=== PATIENT | male | born 1960 | race Caucasian/White ===

== ENCOUNTER → 2019-04-26 | Outpatient (CLI) | payer BC ==
[2019-04-26 08:52] LABS: HCT 45.8 % (39.0-53.0); MCV 91.5 fL (80.0-100.0); Mean Platelet Volume 6.2; Platelet Count 281 k/uL (150-450); RDW 11.8 % (11.5-15.5); WBC 7.8 k/uL (3.8-10.6)
[2019-04-26 08:56] LABS: Appearance,Urine Clear (Clear); Bilirubin,Urine Negative (Negative); Blood,Urine Negative (Negative); Color,Urine Yellow; Glucose,Urine (UA) Negative (Negative); Ketones,Urine Negative (Negative); Leukocyte Esterase,Urine Negative (Negative); Nitrite,Urine Negative (Negative); Protein,Urine Negative (Negative); Specific Gravity,Urine 1.019 (1.001-1.035); Urobilinogen,Urine <2.0 mg/dL (<2.0)
[2019-04-26 08:57] LABS: Albumin 4.4 g/dL (3.5-5.0); Calcium 9.8 mg/dL (8.4-10.2); Potassium 4.4 mmol/L (3.5-5.1); Total Bilirubin 1.3 mg/dL (0.2-1.3); Total Protein 7.5 g/dL (6.3-8.2)
== END | disposition home or self-care (01) ==
LOC: LABPAT 07:54
PROVIDERS: ATTEND Orthopaedic Surgery
DX: Z01.812 Encounter for preprocedural laboratory examination (principal); M16.11 Unilateral primary osteoarthritis, right hip
CPT/HCPCS: 36415; 80053; 81003; 85027; 85610; 85730; 87070

== ENCOUNTER 2019-05-01 07:16 | Inpatient (IN) | payer BC ==
[2019-04-26 14:24] VITALS: BMI 29.5
[~2019-05-01 07:16] MED LIST: ACETAMINOPHEN TAB 500 MG TAB PO ONE; DEXAMETHASONE SOD PHOSPHATE 10 MG/ML 1 ML VIAL IV ONE; GABAPENTIN 300 MG CAP PO ONE; LIDOCAINE 1% 20 ML VIAL (10MG/ML) FOR IV START INTRADERMA PRN; MELOXICAM 7.5 MG TAB PO ONE; ROPIVACAINE 246.25 MG, EPINEPHrine 0.5 MG, KETOROLAC 30 MG, cloNIDine HCL/PF 80 MCG, WA... MISCELLANE ONE; TRANEXAMIC ACID 1,000 MG in SODIUM CHLORIDE 0.9% 100 ML IVPB ONE
[2019-05-01] MEDS ORDERED: HYDROmorphone 0.5 MG/0.5 ML SYRINGE IVP PRN ×2 (09:01)
[2019-05-01] MEDS ORDERED: hydrOXYzine PAMOATE 25 MG CAP PO PRN (09:01)
[2019-05-01] MEDS ORDERED: NALOXONE 0.4 MG/ML 1 ML VIAL IV PRN (09:01)
[2019-05-01] MEDS ORDERED: HYDROcodone/APAP 5-325MG 1 EACH TAB PO PRN ×2 (09:01)
[2019-05-01] MEDS ORDERED: DIAZEPAM 5 MG TAB PO PRN (09:01)
[2019-05-01] MEDS ORDERED: MAGNESIUM HYDROXIDE 2,400 MG/10 ML CUP PO PRN (09:01)
[2019-05-01] MEDS ORDERED: HYDROmorphone 1 MG/ML 1 ML SYRINGE IVP PRN (09:01)
[2019-05-01] MEDS ORDERED: ONDANSETRON 4 MG/2 ML VIAL IVP PRN (09:01)
[2019-05-01] MEDS: LACTATED RINGERS 1,000 ML IV SCH (09:02)
[2019-05-01] MEDS ORDERED: ONDANSETRON 4 MG/2 ML VIAL IVP ONE (09:02)
[2019-05-01] MEDS ORDERED: TRANEXAMIC ACID 1,000 MG/10 ML VIAL ONE (09:37)
[2019-05-01] MEDS ORDERED: MIDAZOLAM 2 MG/2 ML VIAL ONE (09:37)
[2019-05-01] MEDS ORDERED: LACTATED RINGERS 1,000 ML BAG IV ONE (09:37)
[2019-05-01] MEDS ORDERED: SUCCINYLCHOLINE CHLORIDE 100 MG/5 ML SYR IV ONE (09:37)
[2019-05-01] MEDS ORDERED: SODIUM CHLORIDE 0.9% 100 ML BAG ONE (09:37)
[2019-05-01] MEDS ORDERED: fentaNYL (PF) 50 MCG/ML 2 ML AMP ONE (09:37)
[2019-05-01] MEDS ORDERED: ePHEDrine SULFATE/0.9% NACL/PF 50 MG/5 ML SYRINGE IV ONE (09:37)
[2019-05-01] MEDS ORDERED: PROPOFOL 10 MG/ML 20 ML VIAL IV ONE (09:37)
[2019-05-01] MEDS ORDERED: LIDOCAINE 1% INJ 10MG/ML (20 ML MDV) ONE (09:37)
[2019-05-01] MEDS ORDERED: ceFAZolin 3,000 MG in SODIUM CHLORIDE 0.9% IRRIGATIO 3,000 ML IRRIGATION ONE (09:40)
[2019-05-01] MEDS ORDERED: LACTATED RINGERS 1,000 ML IV ONE (11:09)
[2019-05-01] MEDS: HYDROmorphone 0.5 MG/0.5 ML SYRINGE IVP PRN ×4 (11:25→11:45)
--- NOTE | 2019-05-01 11:27 | P.OP ---
Date of Procedure: 05/01/19 Preoperative Diagnosis: Severe osteoarthritis right hip Postoperative Diagnosis: Severe osteoarthritis right hip Procedure(s) Performed: Right total hip arthroplasty with a direct anterior approach Implants: [employer] [employer] Polarstem size 5 standard [employer] R3, 3 hole acetabular shell, 54 mm [employer] reflection 6.5 mm cancellus screw, 20 mm 2 [employer] R3, XLPE 20 acetabular liner [employer] Oxinium femoral head 36 m, +0 All components were press-fit. The articulation is Oxinium on polyethylene. Anesthesia: GETA Surgeon: José Miguel Vanessa Stratigraphy Teacher #1: Soraya Brooks Estimated Blood Loss (ml): 200 (70 mL returned with Cell Saver) Pathology: other (Femoral head) Condition: stable Disposition: PACU Indications for Procedure: After failure of conservative treatment we discussed the surgical and nonsurgical treatment options at length. Patient wishes to proceed with a total hip arthroplasty with a direct anterior approach. Complications specific to this procedure were discussed at length, including but not limited to infection, leg length discrepancy, dislocation, and nerve injury. Patient is aware of all these complications and informed consent was obtained Operative Findings: The operative findings are consistent with severe osteoarthritis of the right hip Description of Procedure: Patient was seen and evaluated in the preoperative area, consent was reviewed, and the surgical site was marked with a skin marker. Patient was then brought to the operating room and given prophylactic antibiotics intravenously. 1 g of Tranexamic acid was also given. A spinal anesthetic was administered by the anesthesia department. The spinal anesthetic did not seem to provide adequate anesthesia, so a general anesthetic was then administered. The patient was then placed on the [place] table with the bony prominences well-padded. The hip area was then prepped and draped in usual sterile fashion. A universal timeout was then performed, which confirmed the patient's name, surgical site, ALLERGIES, and procedure being performed. Next the incision site was located at 1 cm distal and 1 cm lateral to the anterior superior iliac spine. The skin and subcutaneous tissues were sharply incised. Incision was carefully dissected down to the fascia overlying the tensor fascia ingrid muscle. This fascia was then incised in line with the incision. Next, using blunt finger dissection, the tensor fascia ingrid muscle was dissected off its investing fascia. The muscle was then carefully retracted laterally with a cobra retr actor over the lateral neck of the femur. Next, the circumflex vessels were identified and cauterized using the AquaMantis device. The anterior hip capsule was then exposed. The capsule was then opened and an inverted T fashion. Cobra retractors were then placed intracapsularly. The proximal femur was then visualized. The femoral neck was then osteotomized appropriate level above the lesser trochanter. Small amount of traction was placed with the [place] table. A small wedge of bone was then removed from the remaining femoral head. Next, using a corkscrew femoral head was easily removed from the acetabulum. On gross visual inspection, the femoral head had complete loss of articular cartilage in multiple periarticular osteophytes. Attention was then turned to the acetabulum. the acetabulum was exposed and any remaining labrum was excised. Sequential reaming of the acetabulum was performed using fluoroscopic guidance. When the appropriate size was reached, a trial was then placed. The position and fit of the trial was checked with fluoroscopy. The trial was then removed. Then, using fluoroscopic guidance, the final implant was impacted at 20 of anteversion and 40 of abduction, and fully seated in the acetabulum. 2 screws were then placed in the acetabulum. Again fluoroscopy was used to check position of the screws. Next, the liner was then impacted, with a 20 elevated liner located in the anterior superior quadrant. Component locking was confirmed. Attention was then directed to the femur. With the aid of the [place] table, the femur was externally rotated to approximately 130, extended, and abducted under the opposite leg. A side hook was then placed under the proximal femur, and the side hook elevator was used to elevate the proximal femur. Retractors were then placed. A capsular release was performed, as well as a release of the conjoined tendon, which afforded excellent visualization of the proximal femur. Next, a box osteotome was used to lateralize the proximal femur. A hide stretcher hand was then used to locate the femoral canal. Sequential broaching was then performed with appropriate size which afforded excellent fixation in the proximal femur. A trial was then placed with appropriate head and neck, and the hip was gently reduced with the aid of the [place] table. Fluoroscopy was then used to check position of the components, as well as to ensure equal leg lengths. The hip was then gently dislocated and the trials were then removed. Final implants were then impacted and the hip was again reduced. Final fluoroscopic x-rays con firmed that the components were in anatomic position, as well as equal leg lengths. The hip was also taken through range of motion, and found to be stable. The hip was then copiously irrigated with antibiotic solution with pulsatile lavage. The hip was then irrigated with Irrisept solution. The soft tissues were then injected with a ropivacaine solution, which consisted of 246.25 mg of ropivacaine, 0.5 mg of epinephrine, 30 mg of Toradol, 80 g of clonidine, and 48.45 mL of sterile water, for a total of 100 mL of fluid injected. A second dose of 1 g of Tranexamic acid was also given. the fascia was then closed with 2-0 strata fix suture. The subcutaneous tissue was closed with 3-0 Vicryl. The subcuticular tissue was closed with 3-0 strata fix suture. The skin was then closed with Dermabond glue and a sterile silver dressing. The patient was then transferred to the recovery room in stable condition. The learning and development assistant SARI Couch was required due to the complexity of surgery, and the need for skilled surgical services director for positioning, draping, exposure, retraction, and closure of the wound.
[2019-05-01] MEDS ORDERED: diphenhydrAMINE 50 MG/ML 1 ML VIAL IVP ONE (11:33)
[2019-05-01] MEDS ORDERED: KETOROLAC 30 MG/ML 1 ML VIAL IVP ONE (11:34)
--- NOTE | 2019-05-01 12:00 | XR ---
EXAMINATION TYPE: XR Hip Limited RT DATE OF EXAM: 05/01/2019 COMPARISON: NONE HISTORY: Postop TECHNIQUE: One view submitted. FINDINGS: There is postsurgical change in near anatomic alignment. There is soft tissue edema and emphysema. IMPRESSION: 1. Postoperative change. Appears in near-anatomic alignment.
--- NOTE | 2019-05-01 13:43 | XR ---
Limited right hip HISTORY: Right hip arthroplasty 2 intraoperative C-arm images document the procedure.
--- NOTE | 2019-05-01 13:43 | FL ---
Fluoroscopy HISTORY: Anterior hip replacement 1.12 minutes fluoroscopy time supplied to the referring clinician. 2 intraoperative C-arm images doc ument the procedure. See dictated report from orthopedic surgery.
[2019-05-01 15:52] LABS: Glucose,Whole Blood 137 mg/dL (75-99)
[2019-05-01] MEDS: SODIUM CHLORIDE 0.9% 1,000 ML IV SCH (17:38)
[2019-05-01] MEDS ORDERED: ACETAMINOPHEN TAB 325 MG TAB PO PRN (17:48)
--- NOTE | 2019-05-01 17:54 | P.CONS ---
History of Present Illness - Reason for Consult Consult date: 05/01/19 Medical management Requesting physician: José Miguel Vanessa - Chief Complaint Right hip pain - History of Present Illness 58-year-old male with PMH of ALLERGIC rhinitis and right hip osteoarthritis presents to [facility] for elective surgery. He is status post right total hip arthroplasty with a direct anterior approach. Patient was seen and examined after his procedure. Patient reports vague right hip pain, described as pulled muscle, well controlled currently. He denies any chest pain, shortness of breath or palpitations. No nausea or vomiting. No fever or chills. Not passing gas. Has not had a bowel movement. Also had some urinary hesitancy when trying to urinate after surgery. He denies any headache, lower extremity edema, cough or palpitations. He does complain of some numbness along the lateral side of the right hip. Review of Systems Pertinent positives and negatives as discussed in HPI, a complete review of systems was performed and all other systems are negative. Past Medical History Past Medical History: No Reported History Additional Past Medical History / Comment(s): seasonal allergies History of Any Multi-Drug Resistant Organisms: None Reported Past Surgical History: No Surgical Hx Reported Additional Past Surgical History / Comment(s): mole removed,colonscopy Past Anesthesia/Blood Transfusion Reactions: No Reported Reaction, Motion Sickness Past Psychological History: Anxiety Smoking Status: Never smoker Past Alcohol Use History: None Reported Past Drug Use History: None Reported Additional Drug Use History / Comment(s): cbd oil - Past Family History Mother Family Medical History: Cancer Additional Family Medical History / Comment(s): breast cancer Father Family Medical History: Cancer Additional Family Medical History / Comment(s): bladder cancer Medications and Allergies Home Medications Medication Instructions Recorded Confirmed Type Cetirizine HCl [Zyrtec] 10 mg PO DAILY 04/26/19 04/26/19 History Fluticasone Nasal [place] [Flonase 1 spray EA NOSTRIL DAILY 04/26/19 04/26/19 History Nasal [place]] Naproxen Sodium [Aleve] 440 mg PO DAILY 04/26/19 04/26/19 History Allergies Allergy/AdvReac Type Severity Reaction Status Date / Time No Known Allergies Allergy Verified 04/26/19 14:09 Physical Exam Vitals: Vital Signs Temp Pulse Resp BP Pulse Ox 05/01/19 15:13 97.9 F 99 17 128/77 95 05/01/19 14:01 99 16 130/60 97 05/01/19 13:45 91 16 129/68 95 05/01/19 13:00 97 16 129/67 96 05/01/19 12:31 95 16 136/64 99 05/01/19 12:16 94 16 136/66 99 05/01/19 12:01 93 16 170/81 94 L 05/01/19 11:47 95 16 163/84 100 05/01/19 11:20 97.9 F 96 16 145/87 96 05/01/19 09:01 98.1 F 101 H 17 155/74 98 Intake and Output 05/01/19 05/01/19 05/01/19 06:59 14:59 22:59 Intake Total 751 Output Total 200 Balance 551 Intake: IV 751 Output: Estimated Blood Loss 200 Other: Weight 89.2 kg 89.2 kg General: [non toxic], [no distress], [appears at stated age] Derm: [warm], [dry] Head: [atraumatic], [normocephalic], [symmetric] Eyes: [EOMI], [no lid lag], [anicteric sclera] Mouth: [no lip lesion], [mucus membranes moist] Cardiovascular: [S1S2 reg], [no murmur], [positive DP pulse bilateral], Lungs: [CTA bilateral], [no rhonchi, no rales] , [no accessory muscle use] Abdominal: [soft], [ nontender to palpation], [no guarding], [no appreciable organomegaly] Ext: [no gross muscle atrophy], [no edema], [no contractures], [right hip dressing clean dry and intact] Neuro: [ CN II-XI grossly intact], [no focal neuro deficits] Psych: [Alert], [oriented], [appropriate affect] Results Labs: Abnormal Lab Results - Last 24 Hours (Table) 05/01/19 Range/Units 15:50 POC Glucose (mg/dL) 137 H (75-99) mg/dL Assessment and Plan Assessment: Assessment and Plan ALLERGIC rhinitis Right hip osteoarthritis Takes Flonase and Zyrtec at home. Plans: Resume if necessary. Status post right hip arthroplasty POD 0. Plans: Management as per orthopedic surgery. DVT prophylaxis: [SCD] Discussed with: [Patient and ] Anticipated discharge: [Tomorrow] Anticipated discharge place: [Home] A total of [35] minutes was spent on the care of this complex patient more than 50% of the time was spent in counseling and care coordination. Patient names his Azeb decision-maker in the case that he can't make decisions for himself. Patient reiterates wanting to remain full code at this time. Thank you for this consultation. Please call with any additional questions or concerns.
[2019-05-01] MEDS ORDERED: SENNOSIDES-DOCUSATE SODIUM 1 EACH TAB PO SCH (21:00)
[2019-05-01] MEDS: ASPIRIN 325 MG TAB PO SCH (22:13)
[2019-05-02] MEDS: SODIUM CHLORIDE 0.9% 1,000 ML IV SCH ×2 (00:08→12:56)
[2019-05-02 01:54] VITALS: TEMP 97.6
[2019-05-02] MEDS: ASPIRIN 325 MG TAB PO SCH (07:07)
[2019-05-02] MEDS: LACTATED RINGERS 1,000 ML IV SCH (07:10)
[2019-05-02 07:26] LABS: Basophils % (A) 0 %; Eosinophils # (A) 0.1 k/uL (0-0.7); Eosinophils % (A) 1 %; HCT 35.8 % (39.0-53.0); Lymphocytes # (A) 2.4 k/uL (1.0-4.8); Lymphocytes % (A) 22 %; MCH 31.7 pg (25.0-35.0); MCHC 34.5 g/dL (31.0-37.0); MCV 91.7 fL (80.0-100.0); Mean Platelet Volume 7.5; Monocytes # (A) 0.8 k/uL (0-1.0); Monocytes % (A) 7 %; Neutrophils # (A) 7.7 k/uL (1.3-7.7); Neutrophils % (A) 69 %; Platelet Count 198 k/uL (150-450); WBC 11.2 k/uL (3.8-10.6)
[2019-05-02 07:32] LABS: HGB 12.4 gm/dL (13.0-17.5)
[2019-05-02 07:53] VITALS: BP 107/63; PULSE 87; RESP 17
--- NOTE | 2019-05-02 08:22 | P.DS ---
Providers Date of admission: 05/01/19 07:58 Expected date of discharge: 05/02/19 Attending physician: José Miguel Vanessa Consults: 05/01/19 09:01 Consult Physician Routine Consulting Provider: Ge Olsen Consult Reason/Comments: medical management Do you want consulting provider notified?: Yes Primary care physician: Marcos Calderón - Discharge Diagnosis(es) (1) Osteoarthritis of right hip Current Visit: Yes Status: Acute (2) S/P total hip arthroplasty Current Visit: Yes Status: Acute Hospital Course: This is a 58-year-old male with known history of degenerative arthritis of the right hip. The patient presents for evaluation. After discussion and consideration patient elects to proceed with total hip arthroplasty. The patient is seen preoperatively by Dr. Vanessa and medically cleared for surgery by their primary care physician. Patient is admitted to [facility] on 05/01/2019 for total hip arthroplasty. The procedures performed without complication or sequelae. The patient is doing well postoperatively. Labs and vital signs are stable on day of discharge. On day of discharge patient's hip incision is healing well. There is minimal erythema. There is no drainage noted at this time. There is minimal soft tissue swelling to the hip and thigh. Patient has full foot and ankle motion without difficulty or pain. Calf is soft and nontender to palpation. Neurovascular status to the right lower extremity is intact. Patient is discharged home in good condition. Opioid start talking form is reviewed and signed at patient bedside. Please see med rec for accurate list of home medications. Plan - Discharge Summary Discharge Rx Participant: No New Discharge Prescriptions: New Aspirin 325 mg PO BID #60 tab HYDROcodone/APAP 5-325MG [[place] 5-325] 1 - 2 tab PO Q6HR PRN #56 tab PRN Reason: Pain Sennosides [Senokot] 2 tab PO DAILY PRN #60 tablet PRN Reason: Constipation No Action Naproxen Sodium [Aleve] 440 mg PO DAILY Fluticasone Nasal [place] [Flonase Nasal [place]] 1 spray EA NOSTRIL DAILY Cetirizine HCl [Zyrtec] 10 mg PO DAILY Discharge Medication List Cetirizine HCl [Zyrtec] 10 mg PO DAILY 04/26/19 [History] Fluticasone Nasal [place] [Flonase Nasal [place]] 1 spray EA NOSTRIL DAILY 04/26/19 [History] Naproxen Sodium [Aleve] 440 mg PO DAILY 04/26/19 [History] Aspirin 325 mg PO BID #60 tab 05/02/19 [Rx] HYDROcodone/APAP 5-325MG [[place] 5-325] 1 - 2 tab PO Q6HR PRN #56 tab 05/02/19 [Rx] Sennosides [Senokot] 2 tab PO DAILY PRN #60 tablet 05/02/19 [Rx] Follow up Appointment(s)/Referral(s): José Miguel Vanessa DO [Doctor of Osteopathic Medicine] - 2 Weeks Activity/Diet/Wound Care/Special Instructions: Weightbearing as tolerated with walker. Leave dressing intact. Dressing may be removed by home care nurse or by patient in 10 days. May shower with dressing on. Recommend use of compression stockings daily for at least 2 weeks during the day to help prevent swelling and blood clots. May remove at night before sleeping. Please follow-up with [facility] in 2 weeks and call with any questions or concerns, . Discharge Disposition: HOME WITH HOME HEALTH SERVICES
[2019-05-02] MEDS ORDERED: MELOXICAM 7.5 MG TAB PO SCH (09:00)
== END 2019-05-02 13:25 | disposition home health service (06) | DRG 470 ==
LOC: 2ORMAIN 07:58 → 4SSUR 11:31
PROVIDERS: ADMIT Orthopaedic Surgery; ATTEND Orthopaedic Surgery
PROC: 0SR906A Replacement of Right Hip Joint with Oxidized Zirconium on Polyethylene Synthetic Substitute, Uncemented, Open Approach (ICD-10-PCS; principal; 2019-05-01 09:30)
DX: M16.11 Unilateral primary osteoarthritis, right hip (principal); J30.9 Allergic rhinitis, unspecified; Z80.3 Family history of malignant neoplasm of breast; Z80.52 Family history of malignant neoplasm of bladder; Z79.51 Long term (current) use of inhaled steroids; Z79.899 Other long term (current) drug therapy; Z79.1 Long term (current) use of non-steroidal anti-inflammatories (NSAID); Z82.49 Family history of ischemic heart disease and other diseases of the circulatory system
CPT/HCPCS: 73501; 85025; 86850; 86891; 86900; 86901; 88300

== ENCOUNTER 2020-02-22 11:30 | Emergency (ER) | payer BC ==
[2020-02-22 11:40] VITALS: TEMP 98.2
[2020-02-22] MEDS ORDERED: MECLIZINE 25 MG TAB PO STA (12:26)
--- NOTE | 2020-02-22 12:39 | ED ---
General Adult HPI - General Chief complaint: Dizziness Stated complaint: blurred vision, dizziness Time Seen by Provider: 02/22/20 11:30 Source: patient, RN notes reviewed, old records reviewed Mode of arrival: ambulatory Limitations: no limitations - History of Present Illness Initial comments: This is a 59-year-old male who presents to the emergency Department complaining that while at work he had a visual disturbance that started in the center of his eye and was almost like a sunspot they group were freely and cleared in the center and eventually went outside his periphery and went away. Patient denies any headache. Patient states at that time he was feeling a little vertiginous. Patient states he felt as though he needs to grab a hold of something to steady himself. Patient states he never felt like he was going to pass out. Patient s tates that symptom of lightheadedness comes and goes and has had it before in the past. Patient denies any ringing in the ears that is new denies any change in hearing. Patient denies any palpitations chest pain difficulty breathing or shortness of breath. Patient denies any recent fever chills or cough per patient denies any ear pain. Patient denies being congested. Patient states the currently he still feels very slightly lightheaded but has no visual disturbance whatsoever. Patient states the visual disturbance was in both eyes. - Related Data Home Medications Medication Instructions Recorded Confirmed Cetirizine HCl [Zyrtec] 10 mg PO DAILY 04/26/19 02/22/20 Fluticasone Nasal [place] [Flonase 1 spray EA NOSTRIL DAILY 04/26/19 02/22/20 Nasal [place]] Fish Oil/Dha/Epa [Fish Oil 1,200 1 cap PO DAILY 02/22/20 02/22/20 mg Fish Oil] Glucos Sul 2Kcl/MSM/Chond/C/Mn 1 cap PO DAILY 02/22/20 02/22/20 [Glucosamine Chondroitin Cap] Multivitamins, Thera [Multivitamin 1 tab PO DAILY 02/22/20 02/22/20 (formulary)] Turmeric Root Extract [Turmeric] 500 mg PO DAILY 02/22/20 02/22/20 Previous Rx's Medication Instructions Recorded Meclizine [Antivert] 25 mg PO TID #20 tab 02/22/20 Allergies Allergy/AdvReac Type Severity Reaction Status Date / Time No Known Allergies Allergy Verified 02/22/20 13:21 Review of Systems ROS Statement: Those systems with pertinent positive or pertinent negative responses have been documented in the HPI. ROS Other: All systems not noted in ROS Statement are negative. Past Medical History Past Medical History: No Reported History Additional Past Medical History / Comment(s): seasonal allergies History of Any Multi-Drug Resistant Organisms: None Reported Past Surgical History: No Surgical Hx Reported, Joint Replacement Additional Past Surgical History / Comment(s): mole removed,colonscopy, R hip Past Anesthesia/Blood Transfusion Reactions: No Reported Reaction, Motion Sickness Past Psychological History: Anxiety Smoking Status: Never smoker Past Alcohol Use History: None Reported Past Drug Use History: None Reported - Past Family History Mother Family Medical History: Cancer Additional Family Medical History / Comment(s): breast cancer Father Family Medical History: Cancer Additional Family Medical History / Comment(s): bladder cancer General Exam - General Exam Comments Initial Comments: GENERAL: Patient is well-developed and well-nourished. Patient is nontoxic and well-hy drated and is in no acute distress. ENT: Neck is soft and supple. No significant lymphadenopathy is noted. Oropharynx is clear. Moist mucous membranes. Neck has full range of motion without elici ting any pain. EYES: The sclera were anicteric and conjunctiva were pink and moist. Extraocular m ovements were intact and pupils were equal round and reactive to light. Eyelids were unremarkable. PULMONARY: Unlabored respirations. Good breath sounds bilaterally. No audible rales rhonchi or wheezing was noted. CARDIOVASCULAR: There is a regular rate and rhythm without any murmurs gallops or rubs. ABDOMEN: Soft and nontender with normal bowel sounds. No palpable organomegaly was noted. There is no palpable pulsatile mass. SKIN: Skin is clear with no lesions or rashes and otherwise unremarkable. NEUROLOGIC: Patient is alert and oriented x3. Cranial nerves II through XII are grossly intact. Motor and sensory are also intact. Normal speech, volume and content. Symmetrical smile. Cerebellar exam grossly intact. MUSCULOSKELETAL: Normal extremities with adequate strength and full range of motion. No lower extremity swelling or edema. No calf tenderness. LYMPHATICS: No significant lymphadenopathy is noted PSYCHIATRIC: Normal psychiatric evaluation. Limitations: no limitations Course Vital Signs 02/22/20 02/22/20 02/22/20 11:35 12:28 13:47 Temperature 98.2 F 98.2 F Pulse Rate 87 76 58 L Respiratory 18 16 16 Rate Blood Pressure 148/91 148/89 140/87 O2 Sat by Pulse 100 99 99 Oximetry Medical Decision Making - Medical Decision Making EKG shows normal sinus rhythm at 63 bpm ID interval 256 dresses 82 QT interval 396 QTC is 405. Patient's EKG shows no acute abnormality Chest x-ray shows no acute abnormality. CT of the brain shows no acute abnormality. Patient was able to ablate felt slightly off balance is so he had to grab onto something and then he was fine. - Lab Data Result diagrams: 02/22/20 12:33 02/22/20 12:33 Lab Results 02/22/20 02/22/20 02/22/20 Range/Units 12:33 12:33 12:33 WBC 8.1 (3.8-10.6) k/uL RBC 5.39 (4.30-5.90) m/uL Hgb 16.7 (13.0-17.5) gm/dL Hct 49.0 (39.0-53.0) % MCV 91.0 (80.0-100.0) fL MCH 31.0 (25.0-35.0) pg MCHC 34.0 (31.0-37.0) g/dL RDW 11.8 (11.5-15.5) % Plt Count 257 (150-450) k/uL Neutrophils % 67 % Lymphocytes % 24 % Monocytes % 5 % Eosinophils % 1 % Basophils % 1 % Neutrophils # 5.5 (1.3-7.7) k/uL Lymphocytes # 2.0 (1.0-4.8) k/uL Monocytes # 0.4 (0-1.0) k/uL Eosinophils # 0.1 (0-0.7) k/uL Basophils # 0.1 (0-0.2) k/uL PT 10.4 (9.0-12.0) sec INR 1.0 (<1.2) APTT 26.1 (22.0-30.0) sec Sodium 138 (137-145) mmol/L Potassium 4.2 (3.5-5.1) mmol/L Chloride 101 (98-107) mmol/L Carbon Dioxide 31 H (22-30) mmol/L Anion Gap 6 mmol/L BUN 18 (9-20) mg/dL Creatinine 1.03 (0.66-1.25) mg/dL Est GFR (CKD-EPI)AfAm >90 (>60 ml/min/1.73 sqM) Est GFR (CKD-EPI)NonAf 78 (>60 ml/min/1.73 sqM) Glucose 95 (74-99) mg/dL Calcium 9.7 (8.4-10.2) mg/dL Magnesium 2.0 (1.6-2.3) mg/dL Total Bilirubin 1.2 (0.2-1.3) mg/dL AST 32 (17-59) U/L ALT 29 (4-49) U/L Alkaline Phosphatase 65 (38-126) U/L Troponin I (0.000-0.034) ng/mL Total Protein 7.5 (6.3-8.2) g/dL Albumin 4.6 (3.5-5.0) g/dL 02/22/20 Range/Units 12:33 WBC (3.8-10.6) k/uL RBC (4.30-5.90) m/uL Hgb (13.0-17.5) gm/dL Hct (39.0-53.0) % MCV (80.0-100.0) fL MCH (25.0-35.0) pg MCHC (31.0-37.0) g/dL RDW (11.5-15.5) % Plt Count (150-450) k/uL Neutrophils % % Lymphocytes % % Monocytes % % Eosinophils % % Basophils % % Neutrophils # (1.3-7.7) k/uL Lymphocytes # (1.0-4.8) k/uL Monocytes # (0-1.0) k/uL Eosinophils # (0-0.7) k/uL Basophils # (0-0.2) k/uL PT (9.0-12.0) sec INR (<1.2) APTT (22.0-30.0) sec Sodium (137-145) mmol/L Potassium (3.5-5.1) mmol/L Chloride (98-107) mmol/L Carbon Dioxide (22-30) mmol/L Anion Gap mmol/L BUN (9-20) mg/dL Creatinine (0.66-1.25) mg/dL Est GFR (CKD-EPI)AfAm (>60 ml/min/1.73 sqM) Est GFR (CKD-EPI)NonAf (>60 ml/min/1.73 sqM) Glucose (74-99) mg/dL Calcium (8.4-10.2) mg/dL Magnesium (1.6-2.3) mg/dL Total Bilirubin (0.2-1.3) mg/dL AST (17-59) U/L ALT (4-49) U/L Alkaline Phosphatase (38-126) U/L Troponin I <0.012 (0.000-0.034) ng/mL Total Protein (6.3-8.2) g/dL Albumin (3.5-5.0) g/dL Disposition Clinical Impression: [place], Vertigo Disposition: HOME SELF-CARE Condition: Good Instructions (If sedation given, give patient instructions): Vertigo (ED) Prescriptions: Meclizine [Antivert] 25 mg PO TID #20 tab Is patient prescribed a controlled substance at d/c from ED?: No Referrals: Keshia La MD [Primary Care Provider] - 1-2 days
[2020-02-22 12:51] LABS: Basophils # (A) 0.1 k/uL (0-0.2); Basophils % (A) 1 %; Eosinophils # (A) 0.1 k/uL (0-0.7); Eosinophils % (A) 1 %; HGB 16.7 gm/dL (13.0-17.5); Lymphocytes % (A) 24 %; Mean Platelet Volume 7.2; Monocytes # (A) 0.4 k/uL (0-1.0); Monocytes % (A) 5 %; Neutrophils # (A) 5.5 k/uL (1.3-7.7); Neutrophils % (A) 67 %; Platelet Count 257 k/uL (150-450); RBC 5.39 m/uL (4.30-5.90); RDW 11.8 % (11.5-15.5); WBC 8.1 k/uL (3.8-10.6)
[2020-02-22 12:56] LABS: Potassium 4.2 mmol/L (3.5-5.1)
[2020-02-22 12:57] LABS: ALT 29 U/L (4-49); AST 32 U/L (17-59); African American GFR (CKD) >90 (>60 ml/min/1.73 sqM); Albumin 4.6 g/dL (3.5-5.0); Alkaline Phosphatase 65 U/L (38-126); Anion Gap 6 mmol/L; Blood Urea Nitrogen 18 mg/dL (9-20); Calcium 9.7 mg/dL (8.4-10.2); Carbon Dioxide 31 mmol/L (22-30); Chloride 101 mmol/L (98-107); Glucose 95 mg/dL (74-99); Non-African American GFR(CKD) 78 (>60 ml/min/1.73 sqM); Sodium 138 mmol/L (137-145); Total Bilirubin 1.2 mg/dL (0.2-1.3); Total Protein 7.5 g/dL (6.3-8.2)
--- NOTE | 2020-02-22 13:04 | XR ---
EXAMINATION TYPE: XR chest 2V DATE OF EXAM: 02/22/2020 COMPARISON: NONE HISTORY: Shortness of breath TECHNIQUE: Frontal and lateral views of the chest are obtained. FINDINGS: Scattered senescent parenchymal changes noted. No evidence for infiltrate. No evidence for atelectasis. Heart size is stable. Mediastinal structures are stable and grossly unremarkable. No evidence for hilar prominence. Degenerative changes dorsal spine. IMPRESSION: 1. No evidence for acute pulmonary disease.
--- NOTE | 2020-02-22 13:08 | CT ---
EXAMINATION TYPE: CT brain wo con DATE OF EXAM: 02/22/2020 COMPARISON: None HISTORY: Visual disturbance. CT DLP: 1154.[address] of the brain was performed. The ventricles, basal cisterns and sulci overlying the cerebral convexities demonstrate mild enlargem ent. There is no evidence for intracranial hemorrhage or sulcal effacement. There is decreased attenuation about the periventricular white matter and deep white matter of both c erebral hemispheres, compatible with chronic small vessel ischemia. Differential diagnosis does inclu de demyelination. No mass effects are seen.No midline shift. Osseous calvarium is intact. If symptoms persist consider MRI. IMPRESSION: 1. Age related atrophic and chronic small vessel ischemic change without acute intracranial process s een at this time.
[2020-02-22 13:10] LABS: Partial Thromboplastin Time 26.1 sec (22.0-30.0); Prothrombin Time 10.4 sec (9.0-12.0)
[2020-02-22 13:48] VITALS: BP 140/87
[2020-02-22 14:01] VITALS: PULSE 74; RESP 18
== END 2020-02-22 14:10 | disposition home or self-care (01) ==
LOC: EC 11:30
DX: H53.453 Other localized visual field defect, bilateral (principal)
CPT/HCPCS: 36415; 70450; 71046; 80053; 83735; 84484; 85025; 85610; 85730; 93005; 99285

== ENCOUNTER 2021-08-07 08:45 | Day surgery (SDC) | payer BC ==
[2021-08-04 15:28] VITALS: BMI 28.8
[~2021-08-07 08:45] MED LIST changes: -ACETAMINOPHEN TAB 500 MG TAB PO ONE; -DEXAMETHASONE SOD PHOSPHATE 10 MG/ML 1 ML VIAL IV ONE; -GABAPENTIN 300 MG CAP PO ONE; +LACTATED RINGERS 1,000 ML IV SCH; -LIDOCAINE 1% 20 ML VIAL (10MG/ML) FOR IV START INTRADERMA PRN; -MELOXICAM 7.5 MG TAB PO ONE; -ROPIVACAINE 246.25 MG, EPINEPHrine 0.5 MG, KETOROLAC 30 MG, cloNIDine HCL/PF 80 MCG, WA... MISCELLANE ONE; -TRANEXAMIC ACID 1,000 MG in SODIUM CHLORIDE 0.9% 100 ML IVPB ONE
[2021-08-07 09:27] VITALS: TEMP 97
[2021-08-07] MEDS ORDERED: LIDOCAINE 1% INJ 10MG/ML (20 ML MDV) ONE (10:01)
[2021-08-07] MEDS ORDERED: PROPOFOL 10 MG/ML 20 ML VIAL IV ONE (10:01)
--- NOTE | 2021-08-07 10:18 | P.PCN ---
Date of Procedure: 08/07/21 Procedure(s) Performed: BRIEF HISTORY: Patient is a 60-year-old pleasant white male scheduled for an elective colonoscopy as a part of screening for colorectal neoplasia. Last colonoscopy was 10 years ago. PROCEDURE PERFORMED: Colonoscopy with biopsy. PREOPERATIVE DIAGNOSIS: Screening for colon cancer. IV sedation per Anesthesia. PROCEDURE: After informed consent was obtained, the patient, was brought into the endoscopy unit. IV sedation was administered by Anesthesia under continuous monitoring. Digital rectal examination was normal. Initially the Olympus CF-160 flexible video colonoscope was then inserted in the rectum, gradually advanced into the cecum without any difficulty. Careful examination was performed as the scope was gradually being withdrawn. Ileocecal valve and the appendiceal orifice were visualized and appeared normal. Prep was excellent. Mucosa of the cecum, appeared normal. In the ascending colon there was a 3 mm sessile polyp removed by cold biopsy. Rest of the ascending colon, transverse colon, descending colon, sigmoid colon, and rectum appeared normal. Retroflexion was performed in the rectum and no lesions were seen. The patient tolerated the procedure well. IMPRESSION: 5 mm ascending colon polyp status post cold biopsy Rest of the colon appeared normal. RECOMMENDATIONS: Findings of this examination were discussed with the patient as well as his family. He was advised to follow with the biopsy results. If the biopsy results adenoma he can have a repeat colonoscopy in 5 years.
[2021-08-07 10:39] VITALS: BP 123/79; PULSE 71; RESP 16
== END 2021-08-07 11:02 | disposition home or self-care (01) ==
LOC: ORWHC2ENDO 08:45
PROVIDERS: ATTEND Internal Medicine Gastroenterology
DX: Z12.11 Encounter for screening for malignant neoplasm of colon (principal); D12.2 Benign neoplasm of ascending colon
CPT/HCPCS: 45380; 88305; J2001; J2704

== ENCOUNTER → 2023-07-11 | Outpatient (CLI) | payer BC ==
--- NOTE | 2023-07-18 04:35 | US ---
EXAMINATION TYPE: US prostate transrectal DATE OF EXAM: 07/11/2023 COMPARISON: NONE CLINICAL INDICATION: Male, 62 years old with history of N13.8 OTHER OBSTRUCTIVE AND REFLUX UROPATHY; Benign prostatic hyperplasia with outflow obstruction. This examination was performed using the transrectal probe. EXAM MEASUREMENTS: Gland Size: 5.8 x 4.4 x 3.6 cm Volume: 47.58 ml Predicted PSA: 5.71 Actual PSA (if available): 2.98 ng/mL Gland measures enlarged. Complex area seen within the base: 0.6 x 0.6 x 0.5 cm. Questionable fluid area with debris seen at the area of the right seminal vesicle measurin.7 x 3. 2 x 1.5 cm. Question origin. Enlarged right seminal vesicle with fairly homogeneous fluid. Enlarged prostate gland. No suspicious hypoechoic hypervascular nodules. There is incidental 6 mm thin-walled cyst in the prostate base. IMPRESSION: Enlarged prostate gland consistent with BPH. No suspicious focal hypoechoic nodules. Flu id within seminal vesicle, cannot exclude infection at this level. Predicted PSA = volume x 0.12 ng/ml Calculated Volume = 0.5236 x L x W x H
== END | disposition home or self-care (01) ==
LOC: RADUSWWP 08:28
PROVIDERS: ATTEND Family Medicine
DX: N40.0 Benign prostatic hyperplasia without lower urinary tract symptoms (principal); N13.8 Other obstructive and reflux uropathy
CPT/HCPCS: 76872

== ENCOUNTER → 2024-09-20 | Outpatient (CLI) | payer BC ==
[2024-09-20 15:38] LABS: Basophils # (A) 0.06 X 10*3/uL (0.00-0.10); Basophils % (A) 0.9 %; Eosinophils % (A) 2.8 %; HCT 45.7 % (39.6-50.0); HGB 15.6 g/dL (13.0-17.0); Lymphocytes # (A) 2.15 X 10*3/uL (0.90-5.00); Lymphocytes % (A) 30.5 %; MCH 31.5 pg (27.0-32.0); MCHC 34.1 g/dL (32.0-37.0); MCV 92.1 FL (80.0-97.0); Mean Platelet Volume 10.2 FL (9.5-12.2); Monocytes # (A) 0.57 X 10*3/uL (0.20-1.00); Monocytes % (A) 8.1 %; NRBC Per 100 WBC 0 X 10*3/uL (0.00-0.01); Neutrophils # (A) 4.05 X 10*3/uL (1.80-7.70); Neutrophils % (A) 57.6 %; Platelet Count 247 X 10*3/uL (140-440); RBC 4.96 X 10*6/uL (4.40-5.60); RDW 11.8 % (11.5-14.5); WBC 7.04 X 10*3/uL (4.50-10.00)
[2024-09-20 16:01] LABS: Chol/HDL Ratio 3.68 Ratio; Creatine Kinase 239 U/L (35-257); LDL Cholesterol,Calculated 132.2 mg/dL (0.0-131.0); VLDL Calculation 15.58 mg/dL (5.00-40.00)
[2024-09-20 16:02] LABS: ALT 31 U/L (10-49); AST 33 U/L (14-35); Albumin 4.2 g/dL (3.8-4.9); Albumin/Globulin Ratio 1.68 Ratio (1.60-3.17); Alkaline Phosphatase 68 U/L (41-126); Blood Urea Nitrogen 18.9 mg/dL (9.0-27.0); Calcium 9.3 mg/dL (8.7-10.3); Carbon Dioxide 26.4 mmol/L (21.6-31.8); Chloride 103 mmol/L (96-109); Globulin 2.5 g/dL (1.6-3.3); Glucose 90 mg/dL (70-110); Potassium 4.8 mmol/L (3.5-5.5); Prostate Specific Antigen 3.71 ng/mL (0.000-4.500); Sodium 139 mmol/L (135-145); Total Bilirubin 1.2 mg/dL (0.3-1.2); Total Protein 6.7 g/dL (6.2-8.2)
== END | disposition home or self-care (01) ==
LOC: LABWHC1 10:13
PROVIDERS: ATTEND Family Medicine
DX: Z12.5 Encounter for screening for malignant neoplasm of prostate (principal); E78.5 Hyperlipidemia, unspecified
CPT/HCPCS: 36415; 80053; 80061; 82550; 83036; 84153; 85025